=== PATIENT | female | born 1990 | race African-American/Black ===

== ENCOUNTER 2020-06-12 11:03 | Emergency (ER) | payer MEDICAID, OTHER ==
[~2020-06-12] VITALS: Ht 160 cm; Wt 63.5 kg
[2020-06-12] MEDS ORDERED: NS IV 1000 ML 1,000 ML IV SCH (11:15)
[2020-06-12] MEDS ORDERED: NS IV 1000 ML 1,000 ML ONE (11:15)
[2020-06-12] MEDS ORDERED: ONDANSETRON 4 MG/2 ML (SDV) Z0FRAN IVP ONE (11:15)
[2020-06-12] MEDS ORDERED: ONDANSETRON 4 MG/2 ML (SDV) Z0FRAN ONE (11:16)
[2020-06-12 11:20] VITALS: BP 124/68
--- NOTE | 2020-06-12 11:27 | NUR ---
Unable to return pulled et canceled medication d/t PUI status.
[2020-06-12] MEDS ORDERED: BENZ100C18 PO (11:34)
[2020-06-12] MEDS ORDERED: ONDA8TAB13 PO (11:34)
--- NOTE | 2020-06-12 11:34 | ED General ---
General Stated Complaint: COUGH; NAUSEA; DIARRHEA Source of Information: Patient Exam Limitations: No Limitations History of Present Illness Date Seen by Provider: Jun 12, 2020 Time Seen by Provider: 11:31 Initial Comments To ER with a dry nonproductive cough for 1 month. No fevers no chills no loss of taste or smell. No malaise. She did develop some loose stools and nausea 2 days ago but has been able to eat and drink fine. No abdominal pain. Her 8-month-old daughter is here ill with similar symptoms. Timing/Duration: 1-2 Days Severity: Moderate Associated Systoms: Cough; No Fever/Chills, No Headaches, No Loss of Appetite, No Malaise; Nausea/Vomiting Allergies and Home Medications Allergies Coded Allergies: No Known Drug Allergies (Unverified , 06/12/20) Patient Home Medication List Home Medication List Reviewed: Yes Review of Systems Review of Systems Constitutional: see HPI; No chills, No fever EENTM: see HPI Respiratory: see HPI, cough Cardiovascular: no symptoms reported Gastrointestinal: No abdominal pain; diarrhea, nausea Genitourinary: no symptoms reported Musculoskeletal: no symptoms reported Skin: no symptoms reported Psychiatric/Neurological: No Symptoms Reported Hematologic/Lymphatic: No Symptoms Reported Immunological/Allergic: no symptoms reported Past Sgiquvh-[id number]-Jmkoun Hx Patient Social History Recent Foreign Travel: No Contact w/Someone Who Travel: No Physical Exam Vital Signs Capillary Refill : Height, Weight, BMI Height: '" Weight: lbs. oz. kg; BMI Method: General Appearance: No Apparent Distress, WD/WN Eyes: Bilateral Eye Normal Inspection, Bilateral Eye PERRL, Bilateral Eye EOMI Neck: Full Range of Motion, Normal Inspection Respiratory: Lungs Clear, Normal Breath Sounds, No Accessory Muscle Use, No Respiratory Distress Cardiovascular: Regular Rate, Rhythm, Normal Peripheral Pulses Gastrointestinal: Normal Bowel Sounds, Non Tender, Soft Extremity: Normal Capillary Refill, Normal Inspection Neurologic/Psychiatric: Alert, Oriented x3 Skin: Normal Color, Warm/Dry Progress/Results/Core Measures Suspected Sepsis SIRS Temperature: Pulse: Respiratory Rate: Blood Pressure / Mean: Results/Orders My Orders Orders - GURINDER MORE APRN Ed Iv/Invasive Line Start (06/12/20 11:10) Ondansetron Injection (Zofran Injectio (06/12/20 11:16) Covid 19 Inhouse Test (06/12/20 11:27) Chest 1 View, Ap/Pa Only (06/12/20 11:27) Vital Signs/I&O Capillary Refill : Departure Impression Primary Impression: Viral syndrome Disposition: 01 HOME, SELF-CARE Condition: Stable Departure-Patient Inst. Decision time for Depature: 11:33 Patient Instructions: Viral Syndrome (DC) Add. Discharge Instructions: 1. You can use [id number] Imodium as needed to control the diarrhea. Use the nausea medication as directed. Return to ER for any concerns. Scripts Ondansetron (Ondansetron Odt) 8 Mg Tab.rapdis 8 MG PO Q6H PRN for NAUSEA/VOMITING, #10 TAB Prov: GURINDER MORE APRN 06/12/20 Benzonatate (TESSALON PERLES) 100 Mg Capsule 200 MG PO TID, #14 CAP Prov: GURINDER MORE APRN 06/12/20 GURINDER MORE APRN Jun 12, 2020 11:34
--- NOTE | 2020-06-12 12:16 | Diagnostic Imaging Report ---
Portable erect AP chest at 11:51. Indication: Cough There are no prior studies available for comparison. Heart size is within normal limits. The lungs are clear. There is no evidence for failure, pneumonia or for pleural effusion. The mediastinum is not widened. The osseous structures are intact. Impression: There is no evidence for active disease. Dictated by: Dictated on workstation # [id number]
== END 2020-06-12 12:20 | disposition home or self-care (01) ==
LOC: ER 11:08
DX: B34.9 Viral infection, unspecified (principal); Z20.828 Contact with and (suspected) exposure to other viral communicable diseases
CPT/HCPCS: 71045; 99282; U0002; 87635